=== PATIENT | male | born 1965 | race Asian ===

== ENCOUNTER 2019-08-06 17:07 | Inpatient (IN) | payer BC, OTHER ==
[2019-08-06] MEDS ORDERED: ONDANSETRON 4 MG/2 ML VIAL IVPUSH ONE (18:16)
[2019-08-06] MEDS ORDERED: morphine CARPU-JECT 4 MG/1 ML DISP.SYRIN IVPUSH ONE (18:16)
--- NOTE | 2019-08-06 19:16 | PDOC ---
History of Present Illness - General Chief Complaint: Pain Stated Complaint: ABD PAIN Time Seen by Provider: 08/06/19 17:30 History Source: Patient Exam Limitations: No Limitations - History of Present Illness Travel History: No Initial Comments: 08/06/19 19:15 HISTORY OF PRESENT ILLNESS: 54-year-old male past medical history of hypertension, NIDDM, hyperlipidemia, fatty liver who presents to the emergency department for evaluation of diffuse abdominal pain for the past 2 days. Patient reports the pain was a slow crescendo with a maximum intensity of 10/10 which occurred approximately 36 hours after onset. Reports mild nausea and loose yellow stools over this time. He reports he has not vomited denies fevers. Patient reports a decreased appetite but still drinking plenty of fluids. Patient presented to the emergency department the heart rate of 49. No recent travel or sick contacts. PAST MEDICAL HISTORY: See HPI SURGICAL HISTORY: Denies ALLERGIES: No known drug allergies REVIEW OF SYSTEMS General/Constitutional: Denies fever or chills. Denies weakness, weight change. HEENT: Denies change in vision. Denies ear pain or discharge. Denies sore throat. Cardiovascular: Denies chest pain or shortness of breath. Respiratory: Denies cough, wheezing, or hemoptysis. Gastrointestinal: See HPI Genitourinary: Denies dysuria, frequency, or change in urination. Musculoskeletal: Denies joint or muscle swelling or pain. Denies neck or back pain. Skin and breasts: Denies rash or easy bruising. Neurologic: Denies headache, vertigo, loss of consciousness, or loss of sensation. Psychiatric: Denies depression or anxiety. Endocrine: Denies increased thirst. Denies abnormal weight change. Hematologic/Lymphatic: Denies anemia, easy bleeding, or history of blood clots. Allergic/Immunologic: Denies hives or skin allergy. Denies latex allergy. PHYSICAL EXAM General Appearance: Well-appearing, appropriately dressed. No apparent distress , no intoxication. HEENT: EOMI, PERRLA, normal ENT inspection, normal voice, TMs normal, pharynx normal. No conjunctival pallor. No photophobia, scleral icterus. Neck: Supple. Trachea midline. No tenderness, rigidity, carotid bruit, stridor , lymphadenopathy, or thyromegaly. Respiratory/Chest: Lungs CTAB. No shortness of breath, chest tenderness, respiratory distress, accessory muscle use. No crackles, rales, rhonchi, stridor , wheezing, dullness Cardiovascular: RRR. S1, S2. No JVD, murmur, bradycardia, tachycardia. Vascular Pulses: Dorsalis-Pedis (R): 2+, Dorsalis-Pedis (L): 2+ Gastrointestinal/Abdominal: Normal bowel sounds. Obese abdomen soft, non- distended. No tenderness or rebound tenderness. No organomegaly, pulsatile mass , guarding, hernia, hepatomegaly, splenomegaly. Lymphatic: No adenopathy, tenderness. Musculoskeletal/Extremities: Normal inspection. FROM of all extremities, normal capillary refill. Pelvis Stable. No CVA tenderness. No tenderness to extremities, pedal edema, swelling, erythema or deformity. Integumentary: Appropriate color, dry, warm. No cyanosis, erythema, jaundice or rash Neurologic: clinical nursing intern II-XII intact. Fully oriented, alert. Appropriate mood/affect. Motor strength 5/5. No appreciable EOM palsy, facial droop or sensory deficit. Past History - Past Medical History Allergies/Adverse Reactions: Allergies Allergy/AdvReac Type Severity Reaction Status Date / Time No Known Allergies Allergy Verified 08/06/19 17:17 Home Medications: Ambulatory Orders Amlodipine Bes/Olmesartan Med [Jessica 10-40 mg Tablet] 1 tab DAILY 08/06/19 Aspirin [ASA -] 162 mg PO DAILY 08/06/19 Atorvastatin Ca [Lipitor] 40 mg PO HS 08/06/19 Empagliflozin [Jardiance] 10 mg PO DAILY 08/06/19 Ezetimibe 10 mg PO DAILY 08/06/19 Levocetirizine Dihydrochloride 5 mg PO 08/06/19 Metformin HCl [Glucophage] 500 mg PO BID 08/06/19 Semaglutide [Ozempic] 1 mg SQ WEEKLY 08/06/19 COPD: No Diabetes: Yes HTN: Yes Hypercholesterolemia: Yes - Psycho Social/Smoking Cessation Hx Smoking History: Never smoked *Physical Exam - Vital Signs Last Vital Signs Temp Pulse Resp BP Pulse Ox 97.5 F L 49 L 18 122/60 98 08/06/19 17:14 08/06/19 17:14 08/06/19 17:14 08/06/19 17:14 08/06/19 17:14 ED Treatment Course - LABORATORY CBC & Chemistry Diagram: 08/07/19 05:54 08/07/19 05:54 - RADIOLOGY Radiology Studies Ordered: Category Date Time Status CHEST PA & LAT [RAD] Stat Radiology 08/06/19 18:17 Ordered Medical Decision Making - Medical Decision Making 08/06/19 19:18 A/P: 54-year-old male with diffuse abdominal pain and yellow stool for the past 2 days Lungs clear to auscultation bilaterally S1-S2 present. Occasional skipped beats with auscultation No bruits auscultated over the chest or abdomen Obese abdomen soft nontender nondistended Differential diagnosis includes but is not limited to-pancreatitis, hepatitis, gastroenteritis, pneumonia, ACS, aortic dissection, obstruction, perforation, electrolyte abnormality Labs including cardiac profile and lipase Urinalysis, urine culture Chest x-ray EKG CAT scan of the abdomen and pelvis with IV contrast Normal saline 1 L IV bolus Zofran 4 mg IV push Morphine 4 mg IV push Reassess 08/06/19 19:21 08/06/19 22:06 CT scan is read by Dr. Solomon: Small distal bowel obstruction is noted with transition area within the right lower quadrant. The terminal ileum demonstrates a collapsed appearance as does the colon. The maximum dilated small bowel luminal diameter is approximately 4.3 cm. No gross obstructing lesion is identified on CT. LR 125 cc/hour Admit for surgical consult and evaluation Place NG tube 08/06/19 22:26 Case has been discussed with the hospitalist service who accepts patient to inpatient telemetry under Dr. Purcell. 08/06/19 23:08 Consent obtained. NG tube placed at 75 cm with one attempt. Auscultation over the epigastrium reveals gurgling after placement. Aspirated contacts appear to be stomach contents. Chest x-ray pending 08/07/19 00:31 Chest x-ray as read by me: Enlarged cardiac silhouette. No focal infiltrates or consolidations present. NG tube presents appears to be in the stomach. Discharge - Discharge Information Problems reviewed: Yes Clinical Impression/Diagnosis: SBO (small bowel obstruction) Condition: Fair - Admission Yes - Follow up/Referral - Patient Discharge Instructions - Post Discharge Activity
[2019-08-06] MEDS ORDERED: morphine SULFATE 4 MG/ML VIAL ONE (19:31)
[2019-08-06] MEDS ORDERED: ONDANSETRON 4 MG/2 ML VIAL ONE (19:31)
[2019-08-06 19:52] LABS: BASO % 0.2 % (0-2.0); EOS % 1.3 % (0-4.5); HEMATOCRIT 51.5 % (35.4-49); HEMOGLOBIN 17.1 GM/dL (11.7-16.9); LYMPH % 12.8 % (8-40); MCH 29.8 pg (25.7-33.7); MCHC 33.3 g/dl (32.0-35.9); MEAN CELL VOLUME 89.6 fl (80-96); MEAN PLT VOLUME 8.3 fl (7.5-11.1); MONO % 7.3 % (3.8-10.2); NEUT % 78.4 % (42.8-82.8); PLATELET COUNT 291 K/MM3 (134-434); RBC 5.75 M/mm3 (4.00-5.60); RDW 14.4 % (11.9-15.9); WHITE BLOOD COUNT 8.3 K/mm3 (4.0-10.0)
[2019-08-06 20:25] LABS: ALBUMIN 3.5 g/dl (3.4-5.0); ALK PHOS 70 U/L (45-117); ANION GAP 11 MMOL/L (8-16); BILIRUBIN,TOTAL 0.5 mg/dL (0.2-1); BLOOD UREA NITROGEN 21.8 mg/dL (7-18); CALCIUM 8.8 mg/dL (8.5-10.1); CHLORIDE 105 mmol/L (98-107); CO2 24 mmol/L (21-32); CREATININE 1.1 mg/dL (0.55-1.3); GLUCOSE,RANDOM 117 mg/dL (74-106); POTASSIUM 3.7 mmol/L (3.5-5.1); SGOT/AST 33 U/L (15-37); SGPT/ALT 66 U/L (13-61); SODIUM 140 mmol/L (136-145)
[2019-08-06 20:36] LABS: URINE APPEARANCE CLEAR; URINE BILIRUBIN NEGATIVE (NEGATIVE); URINE COLOR YELLOW; URINE GLUCOSE (UA) 3+ (NEGATIVE); URINE KETONE TRACE (NEGATIVE); URINE LEUK ESTERASE NEGATIVE (NEGATIVE); URINE NITRITE NEGATIVE (NEGATIVE); URINE PROTEIN TRACE (NEGATIVE); URINE UROBILINOGEN 0.2 mg/dL (0.2-1.0)
[2019-08-06] MEDS: DEXTROSE 5%-0.45% SALINE 1,000 ML IV SCH (23:22)
[2019-08-06 23:31] LABS: LIPASE 127 U/L (73-393)
--- NOTE | 2019-08-07 00:59 | HP ---
Admitting History and Physical - Primary Care Physician PCP: Quintin Lindquist - Admission Chief Complaint: Abdominal Pain, Watery Diarrhea History of Present Illness: This is a 54 y/o man with a past medical history of Hypertension, Hyperlipidemia , Diabetes Mellitus. Who presents to the ED with diffuse abdominal pain and watery diarrhea x 2 days. Patient reports having mild to moderate cramping intermittently with episodes of watery diarrhea. He denies fever, chills, cough , dizziness, [place], SOB, CP, palpitations, vomiting, melena, hematochezia, hematuria, dysuria. History Source: Patient, Family Member Limitations to Obtaining History: No Limitations - Past Medical History Cardiovascular: Yes: HTN, Hyperlipdemia Pulmonary: Yes: Sleep Apnea Endocrine: Yes: Diabetes Mellitus - Past Surgical History Past Surgical History: Yes: None - Smoking History Smoking history: Never smoked - Alcohol/Substance Use Hx Alcohol Use: Yes (Socially- Beer) History of Substance Use: reports: None - Social History Usual Living Arrangement: Yes: With Spouse, With Child Do you think of yourself as: Straight/Heterosexual ADL: Independent Occupation: Not employed History of Recent Travel: No Home Medications - Allergies Allergies/Adverse Reactions: Allergies Allergy/AdvReac Type Severity Reaction Status Date / Time No Known Allergies Allergy Verified 08/06/19 17:17 - Home Medications Home Medications: Ambulatory Orders Amlodipine Bes/Olmesartan Med [Jessica 10-40 mg Tablet] 1 tab DAILY 08/06/19 Aspirin [ASA -] 162 mg PO DAILY 08/06/19 Atorvastatin Ca [Lipitor] 40 mg PO HS 08/06/19 Empagliflozin [Jardiance] 10 mg PO DAILY 08/06/19 Ezetimibe 10 mg PO DAILY 08/06/19 Levocetirizine Dihydrochloride 5 mg PO 08/06/19 Metformin HCl [Glucophage] 500 mg PO BID 08/06/19 Semaglutide [Ozempic] 1 mg SQ WEEKLY 08/06/19 Family Medical History Family Hx Diabetes: Grandfather (maternal), Mother Family Hx Respiratory Disorders: Father (Asthma) Review of Systems - Review of Systems Constitutional: reports: No Symptoms Eyes: reports: No Symptoms HENT: reports: No Symptoms Neck: reports: No Symptoms Cardiovascular: reports: No Symptoms Respiratory: reports: No Symptoms Gastrointestinal: reports: Abdominal Pain, Diarrhea, Nausea Genitourinary: reports: No Symptoms Breasts: reports: No Symptoms Reported Musculoskeletal: reports: No Symptoms Integumentary: reports: No Symptoms Neurological: reports: No Symptoms Endocrine: reports: No Symptoms Hematology/Lymphatic: reports: No Symptoms Psychiatric: reports: No Symptoms Pain Intensity: 4 Physical Examination Vital Signs: Vital Signs Temperature 97.5 F L 08/06/19 17:14 Pulse Rate 65 08/06/19 23:23 Respiratory Rate 20 08/06/19 23:23 Blood Pressure 102/56 L 08/06/19 23:23 O2 Sat by Pulse Oximetry (%) 95 08/06/19 23:23 Constitutional: Yes: Mild Distress, Obese Eyes: Yes: WNL, Conjunctiva Clear, EOM Intact, PERRL HENT: Yes: WNL, Atraumatic, Normocephalic Neck: Yes: WNL, Supple, Trachea Midline Cardiovascular: Yes: Bradycardia, Pulse Irregular, S1, S2 Respiratory: Yes: Diminished Gastrointestinal: Yes: Soft, Abdomen, Obese, Hypoactive Bowel Sounds, Tenderness (LLQ/LMQ) Renal/: Yes: WNL Breast(s): Yes: WNL Musculoskeletal: Yes: WNL Edema: No Peripheral Pulses WNL: Yes Neurological: Yes: WNL, Alert, Oriented, Cran Nerves II-XII Intact ...Motor Strength: WNL Psychiatric: Yes: WNL, Alert, Oriented Labs: CBC, BMP 08/06/19 19:00 08/06/19 19:00 Imaging - Results Cat Scan: Report Reviewed, Image Reviewed EKG: Image Reviewed (SR with PVCs) Problem List - Problems (1) SBO (small bowel obstruction) Assessment/Plan: CTAP reviewed- distal small bowel obstruction Surgeon consulted by ED staff NGT placed by KIRSTIN Palmer, who confirmed CXR- connected to suction IVF continued Pain Management- Ofirmev prn Monitor CBC, BMP Monitor vitals Hold home meds for now Code(s): K56.609 - UNSP INTESTNL OBST, UNSP TO PARTIAL VERSUS COMPLETE OBST (2) HTN (hypertension) Assessment/Plan: stable Monitor BP Hold po meds Will use anti-HTN IV meds as indicated Code(s): I10 - ESSENTIAL (PRIMARY) HYPERTENSION (3) HLD (hyperlipidemia) Assessment/Plan: hold for now secondary to SBO Code(s): E78.5 - HYPERLIPIDEMIA, UNSPECIFIED (4) Diabetes mellitus Assessment/Plan: stable BGMs Monitor BMP Hold home meds- NPO Code(s): E11.9 - TYPE 2 DIABETES MELLITUS WITHOUT COMPLICATIONS (5) Fatty liver Assessment/Plan: Likely secondary to obesity vs T2DM vs dyslipidemia with metabolic syndrome Will continue to monitor and treat with interventions accordingly Code(s): K76.0 - FATTY (CHANGE OF) LIVER, NOT ELSEWHERE CLASSIFIED (6) Severe obesity (BMI >= 40) Code(s): E66.01 - MORBID (SEVERE) OBESITY DUE TO EXCESS CALORIES Assessment/Plan This is a 54 y.o man with a past medical history of Diabetes Mellitus, Hypertension, Hyperlipidemia, Fatty Liver, Severe Obesity. Admitted to M/S for SBO for further evaluation of their emergent condition. Plan: See Problem List FEN D51/2Ns@75ml/hr Replete lytes prn NPO DVT ppx OOB Heparin SQ Dispo: Requires Inpatient Care Visit type - Emergency Visit Emergency Visit: Yes ED Registration Date: 08/06/19 Care time: The patient presented to the Emergency Department on the above date and was hospitalized for further evaluation of their emergent condition. - New Patient This patient is new to me today: Yes Date on this admission: 08/06/19 - Critical Care Critical Care patient: No
[2019-08-07] MEDS ORDERED: ACETAMINOPHEN 1000 MG/100 ML VIAL (NON FORMULARY) IVPB PRN (02:51)
[2019-08-07 06:28] LABS: BASO % 1.5 % (0-2.0); EOS % 1.5 % (0-4.5); HEMATOCRIT 49.4 % (35.4-49); HEMOGLOBIN 16.3 GM/dL (11.7-16.9); MCH 29.5 pg (25.7-33.7); MCHC 32.9 g/dl (32.0-35.9); MEAN CELL VOLUME 89.6 fl (80-96); MEAN PLT VOLUME 7.7 fl (7.5-11.1); MONO % 4.2 % (3.8-10.2); NEUT % 79.8 % (42.8-82.8); PLATELET COUNT 274 K/MM3 (134-434); RBC 5.51 M/mm3 (4.00-5.60); RDW 14.9 % (11.9-15.9); WHITE BLOOD COUNT 7.2 K/mm3 (4.0-10.0)
[2019-08-07 06:50] LABS: ANION GAP 7 MMOL/L (8-16); BLOOD UREA NITROGEN 21.7 mg/dL (7-18); CALCIUM 9.5 mg/dL (8.5-10.1); CHLORIDE 105 mmol/L (98-107); CO2 29 mmol/L (21-32); CREATININE 1.3 mg/dL (0.55-1.3); GLUCOSE,RANDOM 108 mg/dL (74-106); SODIUM 141 mmol/L (136-145)
--- NOTE | 2019-08-07 11:27 | EKG ---
Test Reason : Blood Pressure : / mmHG Vent. Rate : 092 BPM Atrial Rate : 092 BPM P-R Int : 152 ms QRS Dur : 088 ms QT Int : 352 ms P-R-T Axes : 060 031 041 degrees QTc Int : 435 ms SINUS RHYTHM WITH FREQUENT PREMATURE VENTRICULAR COMPLEXES LOW VOLTAGE QRS BORDERLINE ECG NO PREVIOUS ECGS AVAILABLE Confirmed by SWAPNIL POWER, REHAN ([id number]) on 08/07/2019 11:27:06 AM Referred By: Confirmed By:REHAN KRAFT MD
--- NOTE | 2019-08-07 11:27 | CON.CARD ---
Consult Consult Specialty:: Cardiology coverage for Dr. Plummer Referred by:: Hospitalist Reason for Consultation:: Cardiac evaluation - History of Present Illness Chief Complaint: Abdominal pain with SBO History of Present Illness: Patient is a 54 year old male with underlying history of HTN, hypercholesterolemia, DM who presented to ED with diffuse abdominal pain and diarrhea for the past [address] scan revealed SBO. currently has NG decompression. He denies chest pain, SOB or palpitations. He denies paroxysmal nocturnal dyspnea or othopnea. He denies fever or chills. He denies headache or lightheadedness. He reported cramping of the abdomen which has improved. - History Source History Provided By: Patient, Family Member, Medical Record Limitations to Obtaining History: No Limitations - Past Medical History Cardio/Vascular: Yes: HTN, Hyperlipdemia Pulmonary: Yes: Sleep Apnea Endocrine: Yes: Diabetes Mellitus - Past Surgical History Past Surgical History: Yes: None - Alcohol/Substance Use Hx Alcohol Use: Yes (Socially- Beer) History of Substance Use: reports: None - Smoking History Smoking history: Never smoked - Social History ADL: Independent Occupation: Not employed History of Recent Travel: No Home Medications - Allergies Allergies/Adverse Reactions: Allergies Allergy/AdvReac Type Severity Reaction Status Date / Time No Known Allergies Allergy Verified 08/06/19 17:17 - Home Medications Home Medications: Ambulatory Orders Amlodipine Bes/Olmesartan Med [Jessica 10-40 mg Tablet] 1 tab DAILY 08/06/19 Aspirin [ASA -] 162 mg PO DAILY 08/06/19 Atorvastatin Ca [Lipitor] 40 mg PO HS 08/06/19 Empagliflozin [Jardiance] 10 mg PO DAILY 08/06/19 Ezetimibe 10 mg PO DAILY 08/06/19 Levocetirizine Dihydrochloride 5 mg PO 08/06/19 Metformin HCl [Glucophage] 500 mg PO BID 08/06/19 Semaglutide [Ozempic] 1 mg SQ WEEKLY 08/06/19 Family Medical History Other Family History: DM Review of Systems - Review of Systems Constitutional: denies: Chills, Fever Cardiovascular: denies: Chest Pain, Palpitations, Shortness of Breath Respiratory: denies: Cough, Hemoptysis, Orthopnea, PND, SOB, SOB on Exertion Gastrointestinal: reports: Abdominal Pain, Diarrhea. denies: Melena, Nausea, Rectal Bleeding, Vomiting Genitourinary: denies: Dysuria, Hematuria Musculoskeletal: denies: Back Pain, Joint Pain Neurological: denies: Dizziness, Headache, Seizure, Syncope Vital Signs: Vital Signs Temperature 97.5 F L 08/06/19 17:14 Pulse Rate 88 08/07/19 05:10 Respiratory Rate 20 08/07/19 05:10 Blood Pressure 104/67 08/07/19 05:10 O2 Sat by Pulse Oximetry (%) 95 08/07/19 05:17 HENT: Yes: Atraumatic Neck: Yes: Supple Respiratory: Yes: CTA Bilaterally Gastrointestinal: Yes: Soft, Abdomen, Obese. No: Tenderness Cardiovascular: Yes: Regular Rate and Rhythm JVD: No PMI: Non-Displaced Heart Sounds: Yes: S1, S2 Murmur: No: Systolic Murmur Edema: No - Other Data Labs, Other Data: CBC, BMP 08/07/19 05:54 08/07/19 05:54 Troponin, BNP 08/06/19 08/07/19 08/07/19 19:00 02:40 05:54 Troponin I < 0.02 < 0.02 < 0.02 Sinus rhythm with PVC Imaging - Results Chest X-ray: Report Reviewed (Unremarkable) Cat Scan: Report Reviewed (Abd CT distal SBO) EKG: Report Reviewed Problem List - Problems (1) Diabetes mellitus Code(s): E11.9 - TYPE 2 DIABETES MELLITUS WITHOUT COMPLICATIONS (2) Fatty liver Code(s): K76.0 - FATTY (CHANGE OF) LIVER, NOT ELSEWHERE CLASSIFIED (3) HLD (hyperlipidemia) Code(s): E78.5 - HYPERLIPIDEMIA, UNSPECIFIED (4) SBO (small bowel obstruction) Code(s): K56.609 - UNSP INTESTNL OBST, UNSP TO PARTIAL VERSUS COMPLETE OBST Assessment/Plan 1. Distal SBO currently with NG decompression 2. HTN 3. Hypercholesterolemia 4. DM 5. PANCHO PLAN: 1. Surgical input to follow 2. Cardiac medication on hold until he can resume PO meds 3. NG decompression Further plans are to follow.Dr. lPummer to resume care Friday Daniel Morrow MD
--- NOTE | 2019-08-07 13:32 | PN ---
Progress Note, Physician Chief Complaint: PATIENT SEN IN E.D. MILD DISTRESS NGT IN PLACE TO SUCTION - Current Medication List Current Medications: Active Medications Acetaminophen (Ofirmev Injection -) 1,000 mg IVPB Q6H PRN PRN Reason: PAIN LEVEL 6-10 Last Admin: 08/07/19 03:05 Dose: 1,000 mg Dextrose/Sodium Chloride (D5-1/2ns -) 1,000 mls @ 75 mls/hr IV ASDIR EM Last Admin: 08/06/19 23:22 Dose: 75 mls/hr - Objective Vital Signs: Vital Signs Temperature 97.5 F L 08/06/19 17:14 Pulse Rate 88 08/07/19 05:10 Respiratory Rate 20 08/07/19 05:10 Blood Pressure 104/67 08/07/19 05:10 O2 Sat by Pulse Oximetry (%) 95 08/07/19 05:17 Constitutional: Yes: Mild Distress Cardiovascular: Yes: Regular Rate and Rhythm Respiratory: Yes: WNL Gastrointestinal: Yes: Soft, Abdomen, Obese Genitourinary: Yes: WNL Musculoskeletal: Yes: WNL Extremities: Yes: WNL Edema: Yes Integumentary: Yes: WNL Wound/Incision: Yes: Clean/Dry Neurological: Yes: WNL ...Motor Strength: WNL Psychiatric: Yes: WNL Labs: CBC, BMP 08/07/19 05:54 08/07/19 05:54 Problem List - Problems (1) Diabetes mellitus Code(s): E11.9 - TYPE 2 DIABETES MELLITUS WITHOUT COMPLICATIONS (2) Fatty liver Code(s): K76.0 - FATTY (CHANGE OF) LIVER, NOT ELSEWHERE CLASSIFIED (3) HLD (hyperlipidemia) Code(s): E78.5 - HYPERLIPIDEMIA, UNSPECIFIED (4) HTN (hypertension) Code(s): I10 - ESSENTIAL (PRIMARY) HYPERTENSION (5) SBO (small bowel obstruction) Code(s): K56.609 - UNSP INTESTNL OBST, UNSP TO PARTIAL VERSUS COMPLETE OBST (6) Severe obesity (BMI >= 40) Code(s): E66.01 - MORBID (SEVERE) OBESITY DUE TO EXCESS CALORIES Assessment/Plan SBO NGT IN PLACE SUCTION GI EVAL NPO IVF/ZOFRAN RECOMMENDED OUTPATIENT BARIATRIC EVAL DM CONTROL DVT PROPHYLAXIS
[2019-08-07] MEDS ORDERED: ONDANSETRON 4 MG/2 ML VIAL IVPB PRN (14:01)
[2019-08-07] MEDS: SODIUM CHLORIDE 1,000 ML IV SCH (15:00)
--- NOTE | 2019-08-07 19:13 | CONSULT ---
- Consultation REQUESTING PROVIDER: Spencer ASSISTANT EDUCATION DIRECTOR CONSULT REQUEST: We have been asked to surgically evaluate this patient for possible SBO. PCP:Huyen Wagner HISTORY OF PRESENT ILLNESS: MIMI who is a 54 y/o [place] male who presented w /nausea and abdominal pain and abdominal distention over 6 hours prior to ED evalaution; he came to the ER for evaluation because it was progressively worse ; he states he was passing flatus and liquid bowel movements; he denies any other GI/ c/o. He has NOC; his colonoscopy is up to date. PMHx: HTN/HLD/NIDDM PSHx: none Home Medications Medication Instructions Recorded Amlodipine Bes/Olmesartan Med 1 tab DAILY 08/06/19 [Jessica 10-40 mg Tablet] Aspirin [ASA -] 162 mg PO DAILY 08/06/19 Atorvastatin Ca [Lipitor] 40 mg PO HS 08/06/19 Empagliflozin [Jardiance] 10 mg PO DAILY 08/06/19 Ezetimibe 10 mg PO DAILY 08/06/19 Levocetirizine Dihydrochloride 5 mg PO 08/06/19 Metformin HCl [Glucophage] 500 mg PO BID 08/06/19 Semaglutide [Ozempic] 1 mg SQ WEEKLY 08/06/19 Allergies Allergy/AdvReac Type Severity Reaction Status Date / Time No Known Allergies Allergy Verified 08/06/19 17:17 REVIEW OF SYSTEMS: CONSTITUTIONAL: Absent: fever, chills, diaphoresis, generalized weakness, malaise, loss of appetite, weight change CARDIOVASCULAR: Absent: chest pain, syncope, palpitations, irregular heart rate, lightheadedness , peripheral edema RESPIRATORY: Absent: cough, shortness of breath, dyspnea with exertion, wheezing, stridor, hemoptysis GASTROINTESTINAL: Present: abdominal pain, abdominal distension, nausea, vomiting, diarrhea, Absent: melena, hematochezia GENITOURINARY: Absent: dysuria, frequency, urgency, hesitancy, hematuria, flank pain, genital pain MUSCULOSKELETAL: Absent: myalgia, arthralgia, joint swelling, back pain, neck pain SKIN: Absent: rash, itching, pallor HEMATOLOGIC/IMMUNOLOGIC: Absent: easy bleeding, easy bruising, lymphadenopathy NEUROLOGIC: Absent: headache, focal weakness, paresthesias, dizziness, unsteady gait, seizure, mental status changes, bladder or bowel incontinence PSYCHIATRIC: Absent: anxiety, depression, suicidal or homicidal ideation, hallucinations. PHYSICAL EXAM: GENERAL: Awake, alert, and fully oriented, in no acute distress. HEAD: Normal with no signs of trauma. EYES: PERRL, sclera anicteric, conjunctiva clear. NECK: Normal ROM, supple without lymphadenopathy, JVD, or masses. ABDOMEN: Soft, nontender, distended and tympanitic, normoactive bowel sounds, no guarding, no rebound, no masses. No organomegaly. No hernias. MUSCULOSKELETAL: Normal ROM at all joints. No bony deformities or tenderness. No CVA tenderness. UPPER EXTREMITIES: 2+ pulses, warm, well-perfused. No cyanosis. Cap refill <2 seconds. No peripheral edema. LOWER EXTREMITIES: 2+ pulses, warm, well-perfused. No calf tenderness. No peripheral edema. NEUROLOGICAL: Normal speech, gait not observed. PSYCH: Cooperative. Good eye contact. Appropriate mood and affect. SKIN: Warm, dry, normal turgor, no rashes or lesions noted. Vital Signs Temperature 97.5 F L 08/06/19 17:14 Pulse Rate 88 08/07/19 05:10 Respiratory Rate 20 08/07/19 05:10 Blood Pressure 104/67 08/07/19 05:10 O2 Sat by Pulse Oximetry (%) 95 08/07/19 05:17 Lab Results WBC 7.2 K/mm3 (4.0-10.0) 08/07/19 05:54 RBC 5.51 M/mm3 (4.00-5.60) 08/07/19 05:54 Hgb 16.3 GM/dL (11.7-16.9) 08/07/19 05:54 Hct 49.4 % (35.4-49) H 08/07/19 05:54 MCV 89.6 fl (80-96) 08/07/19 05:54 MCHC 32.9 g/dl (32.0-35.9) 08/07/19 05:54 RDW 14.9 % (11.9-15.9) 08/07/19 05:54 Plt Count 274 K/MM3 (134-434) 08/07/19 05:54 Sodium 141 mmol/L (136-145) 08/07/19 05:54 Potassium 4.0 mmol/L (3.5-5.1) 08/07/19 05:54 Chloride 105 mmol/L (98-107) 08/07/19 05:54 Carbon Dioxide 29 mmol/L (21-32) 08/07/19 05:54 Anion Gap 7 MMOL/L (8-16) L 08/07/19 05:54 BUN 21.7 mg/dL (7-18) H 08/07/19 05:54 Creatinine 1.3 mg/dL (0.55-1.3) 08/07/19 05:54 Random Glucose 108 mg/dL (74-106) H 08/07/19 05:54 Calcium 9.5 mg/dL (8.5-10.1) 08/07/19 05:54 Imaging w/u to date reviewed including todays abdominal films (08/07/19). IMP: SBO in a virgin abdomen. PLAN: NGT/NPO/IVF and serial exams and xrays; possible small bowel series and surgery d/w the patient and his Purnima. Hector Puentes MD FACS
[2019-08-07] MEDS: DEXTROSE 5%-0.45% SALINE 1,000 ML IV SCH (23:46)
--- NOTE | 2019-08-08 10:18 | PN ---
Progress Note, Physician Chief Complaint: Coverage for Dr. Plummer Feels better Tolerating therapy History of Present Illness: Patient was seen and examined. Awake and alert. Chart was reviewed Denies chest pain, SOB or palpitations NG decompression - Current Medication List Current Medications: Active Medications Acetaminophen (Ofirmev Injection -) 1,000 mg IVPB Q6H PRN PRN Reason: PAIN LEVEL 6-10 Last Admin: 08/07/19 03:05 Dose: 1,000 mg Dextrose/Sodium Chloride (D5-1/2ns -) 1,000 mls @ 75 mls/hr IV ASDIR [facility] [place] Last Admin: 08/07/19 23:46 Dose: 75 mls/hr Sodium Chloride (Normal Saline -) 1,000 mls @ 83 mls/hr IV ASDIR EM Last Admin: 08/07/19 15:00 Dose: 83 mls/hr Ondansetron HCl (Zofran Injection) 8 mg IVPB Q6H PRN PRN Reason: NAUSEA - Objective Vital Signs: Vital Signs Temperature 98.0 F 08/08/19 07:20 Pulse Rate 87 08/08/19 07:20 Respiratory Rate 17 08/08/19 07:20 Blood Pressure 105/52 L 08/08/19 07:20 O2 Sat by Pulse Oximetry (%) 99 08/08/19 07:20 Eyes: Yes: PERRL HENT: Yes: Atraumatic Neck: Yes: Supple Cardiovascular: Yes: Regular Rate and Rhythm, Murmur (SM), S1, S2 Respiratory: Yes: CTA Bilaterally Gastrointestinal: Yes: Normal Bowel Sounds, Soft, Abdomen, Obese. No: Tenderness Edema: No Additional Findings/Remarks: - Review of Systems Constitutional: denies: Chills, Fever Cardiovascular: denies: Chest Pain, Palpitations, Shortness of Breath Respiratory: denies: Cough, Hemoptysis, Orthopnea, PND, SOB, SOB on Exertion Gastrointestinal: reports: Abdominal Pain, Diarrhea. denies: Melena, Nausea, Rectal Bleeding, Vomiting Genitourinary: denies: Dysuria, Hematuria Musculoskeletal: denies: Back Pain, Joint Pain Neurological: denies: Dizziness, Headache, Seizure, Syncope Labs: CBC, BMP 08/07/19 05:54 08/07/19 05:54 Problem List - Problems (1) Diabetes mellitus Code(s): E11.9 - TYPE 2 DIABETES MELLITUS WITHOUT COMPLICATIONS (2) Fatty liver Code(s): K76.0 - FATTY (CHANGE OF) LIVER, NOT ELSEWHERE CLASSIFIED (3) HLD (hyperlipidemia) Code(s): E78.5 - HYPERLIPIDEMIA, UNSPECIFIED (4) SBO (small bowel obstruction) Code(s): K56.609 - UNSP INTESTNL OBST, UNSP TO PARTIAL VERSUS COMPLETE OBST Assessment/Plan 1. Distal SBO currently with NG decompression - improving 2. HTN 3. Hypercholesterolemia 4. DM 5. PANCHO PLAN: 1. Surgical input noted 2. Cardiac medication on hold until he can resume PO meds 3. NG decompression as per Surgical team May be admitted to floor care cardiac standpoint Further plans are to follow.Dr. Plummer to resume care Friday Daniel Morrow MD
--- NOTE | 2019-08-08 11:10 | PN ---
Progress Note, Physician Chief Complaint: AWAKE ALERT DENIES ABD PAIN NO NAUSEA/VOMITING PASSING GAS PER RECTUM - Current Medication List Current Medications: Active Medications Acetaminophen (Ofirmev Injection -) 1,000 mg IVPB Q6H PRN PRN Reason: PAIN LEVEL 6-10 Last Admin: 08/07/19 03:05 Dose: 1,000 mg Dextrose/Sodium Chloride (D5-1/2ns -) 1,000 mls @ 75 mls/hr IV ASDIR EM Last Admin: 08/07/19 23:46 Dose: 75 mls/hr Sodium Chloride (Normal Saline -) 1,000 mls @ 83 mls/hr IV ASDIR EM Last Admin: 08/07/19 15:00 Dose: 83 mls/hr Ondansetron HCl (Zofran Injection) 8 mg IVPB Q6H PRN PRN Reason: NAUSEA - Objective Vital Signs: Vital Signs Temperature 98.2 F 08/08/19 10:26 Pulse Rate 87 08/08/19 10:26 Respiratory Rate 17 08/08/19 10:26 Blood Pressure 137/81 08/08/19 10:26 O2 Sat by Pulse Oximetry (%) 99 08/08/19 10:26 Constitutional: Yes: Mild Distress Cardiovascular: Yes: Regular Rate and Rhythm Respiratory: Yes: WNL Gastrointestinal: Yes: Normal Bowel Sounds, Soft, Abdomen, Obese Musculoskeletal: Yes: WNL Edema: Yes Edema: LLE: Trace, RLE: Trace Peripheral Pulses WNL: Yes Integumentary: Yes: WNL Wound/Incision: Yes: Clean/Dry Neurological: Yes: WNL ...Motor Strength: WNL Psychiatric: Yes: WNL Labs: CBC, BMP 08/07/19 05:54 08/07/19 05:54 Problem List - Problems (1) Diabetes mellitus Code(s): E11.9 - TYPE 2 DIABETES MELLITUS WITHOUT COMPLICATIONS (2) Fatty liver Code(s): K76.0 - FATTY (CHANGE OF) LIVER, NOT ELSEWHERE CLASSIFIED (3) HLD (hyperlipidemia) Code(s): E78.5 - HYPERLIPIDEMIA, UNSPECIFIED (4) HTN (hypertension) Code(s): I10 - ESSENTIAL (PRIMARY) HYPERTENSION (5) SBO (small bowel obstruction) Code(s): K56.609 - UNSP INTESTNL OBST, UNSP TO PARTIAL VERSUS COMPLETE OBST (6) Severe obesity (BMI >= 40) Code(s): E66.01 - MORBID (SEVERE) OBESITY DUE TO EXCESS CALORIES Assessment/Plan SBO IMPROVING, XRAY TODAY SHOWS IMPROVEMENT SURGERY F/U CAN DC NGT WHEN SURGERY CLEARS THE PATIENT DC PLANNING OUTPATIENT F/U FOR BARIATRIC SURGERY ELECTIVELY DM WELL CONTROLLED
[2019-08-08] MEDS: SODIUM CHLORIDE 1,000 ML IV SCH ×2 (11:43→22:48)
[2019-08-08 15:18] VITALS: BMI 43.8
[2019-08-08] MEDS ORDERED: ACETAMINOPHEN 1000 MG/100 ML VIAL (NON FORMULARY) IVPB PRN (17:39)
[2019-08-08] MEDS ORDERED: ONDANSETRON 4 MG/2 ML VIAL IVPB PRN (17:39)
--- NOTE | 2019-08-09 10:04 | PN ---
Progress Note, Physician History of Present Illness: Patient is a 54 year old male with underlying history of HTN, hypercholesterolemia, DM who presented to ED with diffuse abdominal pain and diarrhea for the past [address] scan revealed SBO. currently has NG decompression. He denies chest pain, SOB or palpitations. He denies paroxysmal nocturnal dyspnea or othopnea. He denies fever or chills. He denies headache or lightheadedness. He reported cramping of the abdomen which has improved. - Current Medication List Current Medications: Active Medications Acetaminophen (Ofirmev Injection -) 1,000 mg IVPB Q6H PRN PRN Reason: PAIN LEVEL 6-10 Sodium Chloride (Normal Saline -) 1,000 mls @ 83 mls/hr IV ASDIR EM Last Admin: 08/08/19 22:48 Dose: 83 mls/hr Ondansetron HCl (Zofran Injection) 8 mg IVPB Q6H PRN PRN Reason: NAUSEA - Objective Vital Signs: Vital Signs Temperature 97.6 F 08/09/19 06:00 Pulse Rate 93 H 08/09/19 06:00 Respiratory Rate 18 08/09/19 06:00 Blood Pressure 145/83 08/09/19 06:00 O2 Sat by Pulse Oximetry (%) 99 08/08/19 15:00 Eyes: Yes: WNL, Conjunctiva Clear, EOM Intact HENT: Yes: WNL, Atraumatic, Normocephalic Neck: Yes: WNL, Supple, Trachea Midline Cardiovascular: Yes: WNL, Regular Rate and Rhythm Respiratory: Yes: WNL, Regular, CTA Bilaterally Genitourinary: Yes: WNL Musculoskeletal: Yes: WNL Extremities: Yes: WNL Edema: No Integumentary: Yes: WNL Neurological: Yes: WNL, Alert, Oriented ...Motor Strength: WNL Psychiatric: Yes: WNL Labs: CBC, BMP 08/07/19 05:54 08/07/19 05:54 Assessment/Plan 1. Distal SBO currently with NG decompression - improving 2. HTN 3. Hypercholesterolemia 4. DM 5. PANCHO PLAN: 1. Surgical input noted 2. Cardiac medication on hold until he can resume PO meds 3. NG decompression as per Surgical team 4.Upper GI series in progress
--- NOTE | 2019-08-09 11:28 | PN ---
Progress Note (short form) - Note Progress Note: General Surgery 54yo M h/o SBO with virgin abd, pt seen and examined at bedside. Pt states that his abd pain has completely resolved, and that he is passing flatus. Pt states that he is very hungry and wants to eat. Pt denies fever, chills, n/v. Last Vital Signs Temp Pulse Resp BP Pulse Ox 97.6 F 93 H 18 145/83 99 08/09/19 06:00 08/09/19 06:00 08/09/19 06:00 08/09/19 06:00 08/08/19 15:00 CBC, BMP 08/07/19 05:54 08/07/19 05:54 PE Gen: A&O X3 Resp: breathing comfortably Abd; soft, nontender, nondistended Ext: no edema Problem List - Problems (1) SBO (small bowel obstruction) Assessment/Plan: Plan -due to the fact that pt has virgin abd, we will obtain an Upper GI series with small bowel follow through, to evaluate for any pathology. -if no issues would consider starting pts on clears later today. -IV fluids -dvt and GI ppx Will follow Pt discussed with Dr. Puentes who agrees with plan Code(s): K56.609 - UNSP INTESTNL OBST, UNSP TO PARTIAL VERSUS COMPLETE OBST
--- NOTE | 2019-08-09 16:33 | PN ---
Progress Note (short form) - Note Progress Note: patient not in the room been away for the day at test not able to see patient
[2019-08-09] MEDS ORDERED: amLODIPine BESYLATE 5 MG TABLET (FP) PO ONE (17:25)
[2019-08-09] MEDS ORDERED: ACETAMINOPHEN 325 MG TABLET (FP) PO PRN ×2 (17:25→17:40)
[2019-08-09] MEDS: SODIUM CHLORIDE 1,000 ML IV SCH (22:02)
[2019-08-09] MEDS: INSULIN SLIDING SCALE (NOVOLOG) 1 VIAL SQ SCH (22:02)
[2019-08-09] MEDS: ATORVASTATIN CA 40 MG TABLET (FP) PO SCH (22:09)
[2019-08-10] MEDS: SODIUM CHLORIDE 1,000 ML IV SCH ×2 (04:30→22:31)
[2019-08-10] MEDS: INSULIN SLIDING SCALE (NOVOLOG) 1 VIAL SQ SCH ×4 (06:54→22:32)
--- NOTE | 2019-08-10 08:43 | PN ---
Progress Note (short form) - Note Progress Note: Pt seen and examined. Reports he is feeling well. NGT removed by MD yesterday evening. No n/v overnight. Tolerating clears. Has been oob without issue. Small bowel follow through done yesterday. Passing flatus, no BM yet. Denies cp/sob. No abdo pain. Vital Signs Temp 97.8 F 08/10/19 06:00 Pulse 85 08/10/19 06:00 Resp 20 08/10/19 06:00 BP 124/81 08/10/19 06:00 Pulse Ox 99 08/10/19 03:00 Intake & Output 08/09/19 08/09/19 08/10/19 11:59 23:59 11:59 Intake Total 900 1245 664 Output Total 1400 350 650 Balance -500 895 14 Weight 280 lb Intake: IV 900 1245 664 Normal Saline - 1,000 ml 900 1245 664 @ 83 mls/hr IV ASDIR EM Rx#:[id number] Oral 0 Output: Gastric Drainage 850 150 Urine 550 200 650 Void 550 200 650 Other: Voiding Method Toilet Toilet Toilet Bowel Movement No No Height 5 ft 7 in Body Mass Index (BMI) 43.8 CBC, BMP 08/07/19 05:54 08/07/19 05:54 Gen: awake, alert, nad Resp: unlabored on ra Abdo: soft, nt/nd, + bowel sounds A/P: 54 y/o M w/ PMhx Hypertension, Hyperlipidemia, Diabetes Mellitus, morbid obesity, virgin abdomen a/w SBO, clinically improved. afebrile, vss Tolerating clears, no n/v since removal of NGT yesterday evening +Flatus, no BM yet -OOB ambulating -Diet advanced to soft at lunch -Monitor I&Os -Avoid narcotics d/w attending Dr Puentes
[2019-08-10] MEDS: amLODIPine BESYLATE 5 MG TABLET (FP) PO SCH (09:01)
[2019-08-10] MEDS: ASPIRIN 81 MG CHEWABLE TABLETS PO SCH (09:01)
[2019-08-10] MEDS: EZETIMIBE 10 MG TABLET (FP) PO SCH (09:01)
[2019-08-10 09:15] LABS: BASO % 0.6 % (0-2.0); EOS % 3.1 % (0-4.5); HEMOGLOBIN 14.9 GM/dL (11.7-16.9); LYMPH % 20.4 % (8-40); MCH 29.2 pg (25.7-33.7); MEAN CELL VOLUME 88.3 fl (80-96); MEAN PLT VOLUME 7.3 fl (7.5-11.1); MONO % 6.2 % (3.8-10.2); NEUT % 69.7 % (42.8-82.8); PLATELET COUNT 276 K/MM3 (134-434); RDW 13.9 % (11.9-15.9); WHITE BLOOD COUNT 7.4 K/mm3 (4.0-10.0)
--- NOTE | 2019-08-10 09:28 | PN ---
Progress Note, Physician - Current Medication List Current Medications: Active Medications Acetaminophen (Ofirmev Injection -) 1,000 mg IVPB Q6H PRN PRN Reason: PAIN LEVEL 6-10 Acetaminophen (Tylenol -) 650 mg PO Q6H PRN PRN Reason: PAIN LEVEL 1-5 Last Admin: 08/09/19 22:08 Dose: 650 mg Amlodipine Besylate (Norvasc -) 5 mg PO DAILY [facility] Last Admin: 08/10/19 09:01 Dose: 5 mg Aspirin (Asa -) 162 mg PO DAILY [facility] Last Admin: 08/10/19 09:01 Dose: 162 mg Atorvastatin Calcium (Lipitor -) 40 mg PO HS [facility] Last Admin: 08/09/19 22:09 Dose: 40 mg Ezetimibe (Zetia -) 10 mg PO DAILY [facility] Last Admin: 08/10/19 09:01 Dose: 10 mg Sodium Chloride (Normal Saline -) 1,000 mls @ 83 mls/hr IV ASDIR [facility] Last Admin: 08/10/19 04:30 Dose: 83 mls/hr Insulin Aspart (Novolog Vial Sliding Scale -) 1 vial SQ ACHS [facility]; Protocol Last Admin: 08/10/19 06:54 Dose: Not Given Ondansetron HCl (Zofran Injection) 8 mg IVPB Q6H PRN PRN Reason: NAUSEA - Objective Vital Signs: Vital Signs Temperature 98.2 F 08/10/19 09:07 Pulse Rate 84 08/10/19 09:07 Respiratory Rate 20 08/10/19 09:07 Blood Pressure 146/72 08/10/19 09:07 O2 Sat by Pulse Oximetry (%) 99 08/10/19 03:00 Cardiovascular: Yes: Regular Rate and Rhythm, S1, S2 Respiratory: Yes: Regular, CTA Bilaterally Gastrointestinal: Yes: Normal Bowel Sounds, Soft Labs: CBC, BMP 08/10/19 08:45 Problem List - Problems (1) SBO (small bowel obstruction) Assessment/Plan: CTAP reviewed- distal small bowel obstruction Surgeon consult noted NGT removed UGI series noted--no obstruction tolerating clear advance Monitor CBC, BMP Monitor vitals Code(s): K56.609 - UNSP INTESTNL OBST, UNSP TO PARTIAL VERSUS COMPLETE OBST (2) HTN (hypertension) Assessment/Plan: stable Monitor BP Code(s): I10 - ESSENTIAL (PRIMARY) HYPERTENSION (3) HLD (hyperlipidemia) Assessment/Plan: resume Code(s): E78.5 - HYPERLIPIDEMIA, UNSPECIFIED (4) Diabetes mellitus Assessment/Plan: stable BGMs Monitor BMP Code(s): E11.9 - TYPE 2 DIABETES MELLITUS WITHOUT COMPLICATIONS (5) Fatty liver Assessment/Plan: Likely secondary to obesity vs T2DM vs dyslipidemia with metabolic syndrome Will continue to monitor and treat with interventions accordingly Code(s): K76.0 - FATTY (CHANGE OF) LIVER, NOT ELSEWHERE CLASSIFIED (6) Severe obesity (BMI >= 40) Code(s): E66.01 - MORBID (SEVERE) OBESITY DUE TO EXCESS CALORIES Code(s): K56.609 - UNSP INTESTNL OBST, UNSP TO PARTIAL VERSUS COMPLETE OBST (2) Diabetes mellitus Code(s): E11.9 - TYPE 2 DIABETES MELLITUS WITHOUT COMPLICATIONS (3) HTN (hypertension) Code(s): I10 - ESSENTIAL (PRIMARY) HYPERTENSION (4) Severe obesity (BMI >= 40) Code(s): E66.01 - MORBID (SEVERE) OBESITY DUE TO EXCESS CALORIES
[2019-08-10 09:42] LABS: ALBUMIN 3.2 g/dl (3.4-5.0); BILIRUBIN,TOTAL 0.9 mg/dL (0.2-1); BLOOD UREA NITROGEN 8.4 mg/dL (7-18); CALCIUM 8.5 mg/dL (8.5-10.1); CREATININE 0.7 mg/dL (0.55-1.3); POTASSIUM 3.1 mmol/L (3.5-5.1); TOT PROT 6.2 g/dl (6.4-8.2)
--- NOTE | 2019-08-10 11:02 | ECHO ---
Version: 1 Name: MARK ELIZALDE Exam: Adult Echocardiogram Study Date: 08/10/2019, 9:25 AM Age: 54 Years MMode/2D Measurements & Calculations IVSd: 0.97 cm LVIDs: 3.1 cm LVIDd: 4.7 cm LVPWd: 0.99 cm LVOT diam: 2.11 cm Ao root diam: 3.2 cm LA dimension: 3.8 cm Doppler Measurements & Calculations MV E max ceasar: 98.2 cm/sec Med E/e': 13.6 MV A max ceasar: 86.9 cm/sec Med Peak E' Ceasar: 7.2 cm/sec MV E/A: 1.13 Lat E/e': 12.8 Lat Peak E' Ceasar: 7.7 cm/sec Ao max P.0 mmHg Ao V2 max: 150.4 cm/sec TR max ceasar: 228.7 cm/sec TR max P.3 mmHg Procedure A complete two-dimensional transthoracic echocardiogram was performed (2D, M-mode, Doppler and color flow Doppler). The patient was in normal sinus rhythm during the exam. Left Ventricle The left ventricular size, thickness and function are normal. Left Ventricular Filling pattern is no rmal for age. Right Ventricle The right ventricle is normal in size and function. Atria Normal left and right atrial size and function. Mitral Valve There is mild mitral annular calcification. There is no mitral regurgitation noted. Tricuspid Valve The tricuspid valve is normal in structure and function. Aortic Valve The aortic valve is normal in structure and function. No hemodynamically significant valvular aortic stenosis. Pulmonic Valve The pulmonic valve is not well seen, but is grossly normal. Great Vessels The aortic root is normal size. Pericardium/Pleura Small pericardial effusion (<1cm). There are no echocardiographic indications of cardiac tamponade. Summary Statements The left ventricular size, thickness and function are normal Left Ventricular Filling pattern is normal for age. The right ventricle is normal in size and function. Mannie Segura 08/10/2019, 11:01 AM Ordering Physician: Salina Kolb Referring Physician: SALINA KOLB Performed By: Leighann Cornejo
--- NOTE | 2019-08-10 15:29 | PN ---
Progress Note, Physician Chief Complaint: Pt A&Ox3; is at bedside. No dizziness, chest pain, or palpitations. Anxious regarding bradycardia on admission. History of Present Illness: 54-year-old male past medical history of hypertension, NIDDM, hyperlipidemia, fatty liver, morbid obesity, sleep apnea, who presents to the emergency department for evaluation of diffuse abdominal pain for the past 2 days. Patient reports the pain was a slow crescendo with a maximum intensity of 10/10 which occurred approximately 36 hours after onset. Reports mild nausea and loose yellow stools over this time. He reports he has not vomited denies fevers. Patient reports a decreased appetite but still drinking plenty of fluids. Patient presented to the emergency department the heart rate of 49. No recent travel or sick contacts. PAST MEDICAL HISTORY: See HPI SURGICAL HISTORY: Denies ALLERGIES: No known drug allergies Stress treadmill MIBI 11/2017: no ischemia; appropriate chronotropic response to exercise. - Current Medication List Current Medications: Active Medications Acetaminophen (Ofirmev Injection -) 1,000 mg IVPB Q6H PRN PRN Reason: PAIN LEVEL 6-10 Acetaminophen (Tylenol -) 650 mg PO Q6H PRN PRN Reason: PAIN LEVEL 1-5 Last Admin: 08/09/19 22:08 Dose: 650 mg Amlodipine Besylate (Norvasc -) 5 mg PO DAILY [facility] Last Admin: 08/10/19 09:01 Dose: 5 mg Aspirin (Asa -) 162 mg PO DAILY [facility] Last Admin: 08/10/19 09:01 Dose: 162 mg Atorvastatin Calcium (Lipitor -) 40 mg PO HS [facility] Last Admin: 08/09/19 22:09 Dose: 40 mg Ezetimibe (Zetia -) 10 mg PO DAILY [facility] Last Admin: 08/10/19 09:01 Dose: 10 mg Sodium Chloride (Normal Saline -) 1,000 mls @ 83 mls/hr IV ASDIR [facility] Last Admin: 08/10/19 04:30 Dose: 83 mls/hr Insulin Aspart (Novolog Vial Sliding Scale -) 1 vial SQ ACHS [facility]; Protocol Last Admin: 08/10/19 11:44 Dose: Not Given Ondansetron HCl (Zofran Injection) 8 mg IVPB Q6H PRN PRN Reason: NAUSEA - Objective Vital Signs: Vital Signs Temperature 98.2 F 08/10/19 09:07 Pulse Rate 84 12/10/19 09:07 Respiratory Rate 20 08/10/19 09:07 Blood Pressure 146/72 08/10/19 09:07 O2 Sat by Pulse Oximetry (%) 98 08/10/19 09:00 Constitutional: Yes: Obese Eyes: Yes: WNL HENT: Yes: WNL Neck: Yes: WNL Cardiovascular: Yes: Regular Rate and Rhythm, S1, S2, S4 Gastrointestinal: Yes: Soft, Abdomen, Obese ...Rectal Exam: Yes: Deferred Genitourinary: No: Anuria Breast(s): Yes: WNL Musculoskeletal: Yes: WNL Extremities: Yes: WNL Edema: No Peripheral Pulses WNL: Yes Integumentary: Yes: WNL Neurological: Yes: WNL ...Motor Strength: WNL Psychiatric: Yes: WNL Labs: CBC, BMP 08/10/19 08:45 08/10/19 08:45 Abnormal Lab Results 08/10/19 08/10/19 08:45 08:45 MPV 7.3 L Potassium 3.1 L Anion Gap 7 L Random Glucose 131 H Total Protein 6.2 L Albumin 3.2 L - ....Imaging Chest X-ray: Image Reviewed EKG: Image Reviewed Problem List - Problems (1) Hypokalemia Assessment/Plan: Replete, and keep 4.0-4.5 F/u Mg and PO4. Code(s): E87.6 - HYPOKALEMIA (2) Bradycardia Assessment/Plan: asymptomatic; noted on admission. Contributing factors may include, but are not limited to, abdominal pain--> vagal reaction; sleep apnea; hypothyroidism. TSH WNL in 2018; f/u this admission. TNI < 0.02. EKG 08/06/19: normal sinus rhythm (VR 92 bpm); frequent PVCs. Stress treadmill MIBI 11/2017: no ischemia; good chronotropic response to exercise (reached >100% MPHR). For Holter monitor. Code(s): R00.1 - BRADYCARDIA, UNSPECIFIED (3) Diabetes mellitus Code(s): E11.9 - TYPE 2 DIABETES MELLITUS WITHOUT COMPLICATIONS (4) Fatty liver Code(s): K76.0 - FATTY (CHANGE OF) LIVER, NOT ELSEWHERE CLASSIFIED (5) HLD (hyperlipidemia) Assessment/Plan: On statin; f/u lipid profile. Code(s): E78.5 - HYPERLIPIDEMIA, UNSPECIFIED (6) HTN (hypertension) Code(s): I10 - ESSENTIAL (PRIMARY) HYPERTENSION (7) SBO (small bowel obstruction) Code(s): K56.609 - UNSP INTESTNL OBST, UNSP TO PARTIAL VERSUS COMPLETE OBST (8) Severe obesity (BMI >= 40) Code(s): E66.01 - MORBID (SEVERE) OBESITY DUE TO EXCESS CALORIES (9) Sleep apnea Code(s): G47.30 - SLEEP APNEA, UNSPECIFIED (10) [place] cardiac risk >20% in next 10 years Assessment/Plan: Decrease ASA to 81 mg daily. F/u lipid profile. Stress MIBI 2018: no ischemia. The importance of weight loss, dietary changes,exercise, control of lipids and glucose, and continuing sleep apnea Rx was discussed today. Code(s): Z91.89 - OTH PERSONAL RISK FACTORS, NOT ELSEWHERE CLASSIFIED
[2019-08-10] MEDS: ATORVASTATIN CA 40 MG TABLET (FP) PO SCH (22:31)
[2019-08-11] MEDS: SODIUM CHLORIDE 1,000 ML IV SCH (04:14)
[2019-08-11] MEDS: INSULIN SLIDING SCALE (NOVOLOG) 1 VIAL SQ SCH ×2 (07:36→11:59)
--- NOTE | 2019-08-11 09:51 | PN ---
Progress Note (short form) - Note Progress Note: Pt seen and examined. Reports he is feeling well. No n/v overnight, tolerating soft diet. Has been oob ambulating. Had bm overnight, reports it was normal. Passing flatus. Denies cp/sob. No abdo pain. Vital Signs Temp 98.0 F 08/11/19 06:45 Pulse 74 08/11/19 06:45 Resp 20 08/11/19 06:45 BP 131/79 08/11/19 06:45 Pulse Ox 98 08/10/19 21:00 Intake & Output 08/10/19 08/10/19 08/11/19 11:59 23:59 11:59 Intake Total 664 1830 1156 Output Total 650 1500 Balance 14 1830 -344 Intake: IV 664 830 996 Normal Saline - 1,000 ml 664 830 996 @ 83 mls/hr IV ASDIR EM Rx#:[id number] IVPB 0 Oral 1000 160 Output: Urine 650 1500 Void 650 1500 Other: Voiding Method Toilet Toilet Urinal # Unmeasured Voids Void 2 Bowel Movement No No No # Bowel Movements 1 CBC, BMP 08/10/19 08:45 08/10/19 08:45 Gen: awake, alert, nad Resp: unlabored on ra Abdo: soft, nt/nd, + bowel sounds A/P: 54 y/o M w/ PMhx Hypertension, Hyperlipidemia, Diabetes Mellitus, morbid obesity, virgin abdomen a/w SBO, clinically improved. afebrile, vss Tolerating soft diet, no n/v +Flatus, + BM -OOB ambulating -Diet advanced to regular -Avoid narcotics -Pt should f/u with GI and Dr Puentes as outpt for further workup for SBO within 1 week d/w attending Dr Puentes
--- NOTE | 2019-08-11 09:57 | DS ---
Physical Examination Vital Signs: Vital Signs Temperature 98.0 F 08/11/19 06:45 Pulse Rate 74 08/11/19 06:45 Respiratory Rate 20 08/11/19 06:45 Blood Pressure 131/79 08/11/19 06:45 O2 Sat by Pulse Oximetry (%) 98 08/10/19 21:00 Cardiovascular: Yes: Regular Rate and Rhythm Respiratory: Yes: Regular, CTA Bilaterally Gastrointestinal: Yes: Normal Bowel Sounds, Soft Labs: CBC, BMP 08/10/19 08:45 08/10/19 08:45 Discharge Summary Problems reviewed: Yes Reason For Visit: SMALL BOWEL OBSTRUCTION Current Active Problems Bradycardia (Acute) Diabetes mellitus (Acute) Fatty liver (Acute) [place] cardiac risk >20% in next 10 years (Acute) HLD (hyperlipidemia) (Acute) HTN (hypertension) (Acute) Hypokalemia (Acute) SBO (small bowel obstruction) (Acute) Severe obesity (BMI >= 40) (Acute) Sleep apnea (Acute) Hospital Course: Problems (1) SBO (small bowel obstruction) Assessment/Plan: CTAP reviewed- distal small bowel obstruction Surgeon consult noted NGT removed UGI series noted--no obstruction tolerating DIET Monitor CBC, BMP Monitor vitals Code(s): K56.609 - UNSP INTESTNL OBST, UNSP TO PARTIAL VERSUS COMPLETE OBST (2) HTN (hypertension) Assessment/Plan: stable Monitor BP Code(s): I10 - ESSENTIAL (PRIMARY) HYPERTENSION (3) HLD (hyperlipidemia) Assessment/Plan: resume Code(s): E78.5 - HYPERLIPIDEMIA, UNSPECIFIED (4) Diabetes mellitus Assessment/Plan: stable BGMs Monitor BMP Code(s): E11.9 - TYPE 2 DIABETES MELLITUS WITHOUT COMPLICATIONS (5) Fatty liver Assessment/Plan: Likely secondary to obesity vs T2DM vs dyslipidemia with metabolic syndrome Will continue to monitor and treat with interventions accordingly Code(s): K76.0 - FATTY (CHANGE OF) LIVER, NOT ELSEWHERE CLASSIFIED (6) Severe obesity (BMI >= 40) Code(s): E66.01 - MORBID (SEVERE) OBESITY DUE TO EXCESS CALORIES Code(s): K56.609 - UNSP INTESTNL OBST, UNSP TO PARTIAL VERSUS COMPLETE OBS Condition: Improved - Instructions Diet, Activity, Other Instructions: see dr atwood in one week and need blood pressure checked and see if meds can be resumed follow up with chorus dancer and surgeon Referrals: Quintin Atwood [Primary Care Provider] - 1 Week Roberto Carlos Plummer MD [Staff Physician] - Disposition: HOME - Home Medications Comprehensive Discharge Medication List: Ambulatory Orders Aspirin [ASA -] 162 mg PO DAILY 08/06/19 Atorvastatin Ca [Lipitor] 40 mg PO HS 08/06/19 Empagliflozin [Jardiance] 10 mg PO DAILY 08/06/19 Ezetimibe 10 mg PO DAILY 08/06/19 Amlodipine Besylate [Norvasc -] 5 mg PO DAILY #30 tablet 08/11/19
--- NOTE | 2019-08-11 10:12 | EKG ---
Test Reason : Blood Pressure : / mmHG Vent. Rate : 089 BPM Atrial Rate : 089 BPM P-R Int : 160 ms QRS Dur : 088 ms QT Int : 384 ms P-R-T Axes : 052 -05 025 degrees QTc Int : 467 ms SINUS RHYTHM WITH OCCASIONAL PREMATURE VENTRICULAR COMPLEXES LOW VOLTAGE QRS INFERIOR INFARCT , AGE UNDETERMINED ABNORMAL ECG WHEN COMPARED WITH ECG OF 06-AUG-2019 19:13, NO SIGNIFICANT CHANGE WAS FOUND Confirmed by NEVA POWER, JENNIFFER ([id number]) on 08/11/2019 10:11:59 AM Referred By: Polly LOWERY Confirmed By:JENNIFFER HOOKS MD
[2019-08-11] MEDS: ASPIRIN 81 MG CHEWABLE TABLETS PO SCH (10:28)
[2019-08-11] MEDS: amLODIPine BESYLATE 5 MG TABLET (FP) PO SCH (10:28)
[2019-08-11] MEDS: EZETIMIBE 10 MG TABLET (FP) PO SCH (10:28)
[2019-08-11 10:59] VITALS: BP 128/97; PULSE 85; TEMP 97.7
--- NOTE | 2019-08-11 11:19 | PN ---
Progress Note, Physician History of Present Illness: Patient is a 54 year old male with underlying history of HTN, hypercholesterolemia, DM who presented to ED with diffuse abdominal pain and diarrhea for the past [address] scan revealed SBO. currently has NG decompression. He denies chest pain, SOB or palpitations. He denies paroxysmal nocturnal dyspnea or othopnea. He denies fever or chills. He denies headache or lightheadedness. He reported cramping of the abdomen which has improved. - Current Medication List Current Medications: Active Medications Acetaminophen (Ofirmev Injection -) 1,000 mg IVPB Q6H PRN PRN Reason: PAIN LEVEL 6-10 Acetaminophen (Tylenol -) 650 mg PO Q6H PRN PRN Reason: PAIN LEVEL 1-5 Last Admin: 08/09/19 22:08 Dose: 650 mg Amlodipine Besylate (Norvasc -) 5 mg PO DAILY [facility] Last Admin: 08/11/19 10:28 Dose: 5 mg Aspirin (Asa -) 162 mg PO DAILY [facility] Last Admin: 08/11/19 10:28 Dose: 162 mg Atorvastatin Calcium (Lipitor -) 40 mg PO HS [facility] Last Admin: 08/10/19 22:31 Dose: 40 mg Ezetimibe (Zetia -) 10 mg PO DAILY [facility] Last Admin: 08/11/19 10:28 Dose: 10 mg Sodium Chloride (Normal Saline -) 1,000 mls @ 83 mls/hr IV ASDIR [facility] Last Admin: 08/11/19 04:14 Dose: 83 mls/hr Insulin Aspart (Novolog Vial Sliding Scale -) 1 vial SQ ACHS [facility]; Protocol Last Admin: 08/11/19 07:36 Dose: Not Given Ondansetron HCl (Zofran Injection) 8 mg IVPB Q6H PRN PRN Reason: NAUSEA - Objective Vital Signs: Vital Signs Temperature 97.7 F 08/11/19 10:00 Pulse Rate 85 08/11/19 10:00 Respiratory Rate 18 08/11/19 10:00 Blood Pressure 128/97 08/11/19 10:00 O2 Sat by Pulse Oximetry (%) 98 08/10/19 21:00 Eyes: Yes: WNL, Conjunctiva Clear, EOM Intact HENT: Yes: WNL, Atraumatic, Normocephalic Neck: Yes: WNL, Supple, Trachea Midline Cardiovascular: Yes: WNL, Regular Rate and Rhythm Respiratory: Yes: WNL, Regular, CTA Bilaterally Gastrointestinal: Yes: WNL, Normal Bowel Sounds Genitourinary: Yes: WNL Musculoskeletal: Yes: WNL Extremities: Yes: WNL Edema: No Integumentary: Yes: WNL Neurological: Yes: WNL, Alert, Oriented ...Motor Strength: WNL Psychiatric: Yes: WNL Labs: CBC, BMP 08/10/19 08:45 08/10/19 08:45 Assessment/Plan - Problems (1) Hypokalemia Assessment/Plan: Replete, and keep 4.0-4.5 F/u Mg and PO4. Code(s): E87.6 - HYPOKALEMIA (2) Bradycardia Assessment/Plan: asymptomatic; noted on admission. Contributing factors may include, but are not limited to, abdominal pain--> vagal reaction; sleep apnea; hypothyroidism. TSH WNL in 2018; f/u this admission. TNI < 0.02. EKG 08/06/19: normal sinus rhythm (VR 92 bpm); frequent PVCs. Stress treadmill MIBI 11/2017: no ischemia; good chronotropic response to exercise (reached >100% MPHR). For Holter monitor. Code(s): R00.1 - BRADYCARDIA, UNSPECIFIED (3) Diabetes mellitus Code(s): E11.9 - TYPE 2 DIABETES MELLITUS WITHOUT COMPLICATIONS (4) Fatty liver Code(s): K76.0 - FATTY (CHANGE OF) LIVER, NOT ELSEWHERE CLASSIFIED (5) HLD (hyperlipidemia) Assessment/Plan: On statin; f/u lipid profile. Code(s): E78.5 - HYPERLIPIDEMIA, UNSPECIFIED (6) HTN (hypertension) Code(s): I10 - ESSENTIAL (PRIMARY) HYPERTENSION (7) SBO (small bowel obstruction) Code(s): K56.609 - UNSP INTESTNL OBST, UNSP TO PARTIAL VERSUS COMPLETE OBST (8) Severe obesity (BMI >= 40) Code(s): E66.01 - MORBID (SEVERE) OBESITY DUE TO EXCESS CALORIES (9) Sleep apnea Code(s): G47.30 - SLEEP APNEA, UNSPECIFIED (10) [place] cardiac risk >20% in next 10 years Assessment/Plan: Decrease ASA to 81 mg daily. F/u lipid profile. Stress MIBI 2018: no ischemia. The importance of weight loss, dietary changes,exercise, control of lipids and glucose, and continuing sleep apnea Rx was discussed today. Code(s): Z91.89 - OTH PERSONAL RISK FACTORS, NOT ELSEWHERE CLASSIFIED
--- NOTE | 2019-08-11 12:23 | PN ---
Progress Note (short form) - Note Progress Note: Attending Surgeon As noted by the PA Will need need outpatient GI f/u for EGD and I will order outpatient CT enterography. Hector Puentes MD FACS
--- NOTE | 2019-08-12 14:36 | HOL ---
Hook-up date: 2019-08-11 09:28:00 Duration: 05:35:00 Test Indications: BRADYCARDIA Medications: 80691 QRS complexes 560 Ventricular ectopics which represent 1 % of total QRS comp. 3380 Supraventricular ectopics which represent 11 % of total QRS comp. * Paced QRS complexs which represent % of total QRS comp. * % of Time Classified as Noise VENTRICULAR ECTOPY 560 Isolated 0 Bigeminal Cycles 0 Couplets 0 Runs 0 Beats in Runs * Beats LONGEST at * BPM at :: -- * Beats FASTEST at * BPM at :: -- SUPRAVENTRICULAR ECTOPY 3378 Isolated 1 Couplets 0 Runs 0 Beats in Runs * Beats LONGEST at * BPM at :: -- * Beats FASTEST at * BPM at :: -- HEART RATES 69 MIN at 13:18:46 2019-08-11 88 AVG 116 MAX at 14:27:14 2019-08-11 LONGEST RR 1.152 secs at 13:47:25 2019-08-11 SCANNED BY DYLAN YODER ON 08/12/19 1. Baseline sinus rhythm with avg hr 88 and range 69-116. 2. No significant bradycardia/pauses. 3. Frequent isolated pvcs and pacs. 4. No vt, vf, afib, aflutter, svt. 5. No diary submitted. Confirmed by DELPHINE POWER, DEBRA ([id number]) on 08/12/2019 2:36:20 PM Referred By: NIRAJ PEREZ DR Overread By: DEBRA AKERS MD
== END 2019-08-11 15:35 | disposition home or self-care (01) | DRG 389 ==
LOC: JER 17:07 → JERBED 23:10 → J5S 08-08 11:26
PROVIDERS: ADMIT Internal Medicine; ATTEND Family Medicine
DX: K56.609 Unspecified intestinal obstruction, unspecified as to partial versus complete obstruction (principal); Z68.41 Body mass index [BMI] 40.0-44.9, adult; I10 Essential (primary) hypertension; E78.5 Hyperlipidemia, unspecified; E11.9 Type 2 diabetes mellitus without complications; G47.30 Sleep apnea, unspecified; K76.0 Fatty (change of) liver, not elsewhere classified; E66.01 Morbid (severe) obesity due to excess calories; E87.6 Hypokalemia; R00.1 Bradycardia, unspecified
CPT/HCPCS: 36415; 71046-TC-FY; 74019-TC-FY; 74177-TC; 74245-TC-FY; 80048; 80053; 81003; 82550; 82553; 82962; 83036; 83690; 84484; 85025; 87086; 93005; 93010; 93225; 93226; 93306-TC; 99285-25; J0131; J7030; Q9967

== ENCOUNTER 2021-03-22 05:03 | Day surgery (SDC) | payer OTHER ==
[2021-03-20 16:05] VITALS: BMI 43.8
[2021-03-22 11:16] VITALS: PULSE 75
[2021-03-22 11:48] VITALS: BP 111/72; TEMP 97
== END 2021-03-22 11:48 | disposition home or self-care (01) ==
LOC: JASU-ENDO 05:03
PROVIDERS: ATTEND Internal Medicine Gastroenterology
PROC: 0DB78ZX Excision of Stomach, Pylorus, Via Natural or Artificial Opening Endoscopic, Diagnostic (ICD-10-PCS; principal; 2021-03-22 10:45)
DX: K29.50 Unspecified chronic gastritis without bleeding (principal); K74.60 Unspecified cirrhosis of liver
CPT/HCPCS: 82962; 88305-TC; 88342-TC